=== PATIENT | male | born 1940 | race Caucasian/White ===

== ENCOUNTER 2018-01-03 10:29 | Observation (INO) ==
[2018-01-03] MEDS ORDERED: Sodium Chlor 0.9% Inj 500 ML IV.SIG ONE (11:15)
[2018-01-03 11:41] LABS: Baso % (Auto) 0.6 % (0.0-2.0); Eos # (Auto) 0.2 th/mm3 (0.0-0.4); Eos % (Auto) 2.7 % (0.0-4.0); Hematocrit 42.9 % (39.0-51.0); Hemoglobin 14.7 gm/dL (13.0-17.0); Lymph # (Auto) 0.9 th/mm3 (1.0-4.8); Lymph % (Auto) 14.7 % (9.0-44.0); Mean Corpuscular HGB Conc 34.2 % (32.0-36.0); Mean Corpuscular Hemoglobin 31.8 pg (27.0-34.0); Mean Platelet Volume 6.9 fL (7.0-11.0); Mono # (Auto) 0.4 th/mm3 (0.0-0.9); Mono % (Auto) 6.7 % (0.0-8.0); Neut # (Auto) 4.6 th/mm3 (1.8-7.7); Neut % (Auto) 75.3 % (16.0-70.0); Platelet Count 232 th/mm3 (150-450); Red Blood Count 4.62 mil/mm3 (4.50-5.90); Red Cell Distribution Width 13.4 % (11.6-17.2); White Blood Count 6.1 th/mm3 (4.0-11.0)
[2018-01-03 11:45] LABS: Activated Partial Thrombo Time 34.4 sec (24.3-30.1); Prothrombin Time 10.6 sec (9.8-11.6)
[2018-01-03 11:57] LABS: Calcium 8.4 mg/dL (8.5-10.1); Carbon Dioxide 28.2 meq/L (21.0-32.0); Potassium 4.3 meq/L (3.5-5.1)
[2018-01-03 12:00] LABS: Troponin I 0.06 ng/mL (0.02-0.05)
--- NOTE | 2018-01-03 12:00 | XR ---
EXAM DATE: 01/03/2018 11:57 AM EDT AGE/SEX: 77 years / Male INDICATIONS: Chest pain since this morning. CLINICAL DATA: This is the patient's initial encounter. Patient reports that signs and symptoms have been present for 1 day and indicates a pain score of 5/10. MEDICAL/SURGICAL HISTORY: None. CABG. COMPARISON: No prior exams available for comparison. FINDINGS: A single AP view of the chest demonstrates the lungs to be symmetrically aerated without evidence of mass, infiltrate or effusion. The cardiomediastinal contours are unremarkable. Previous sternotomy. Osseous structures are intact. CONCLUSION: No active disease. Previous sternotomy. Electronically signed by: Ronald Landry MD 01/03/2018 11:59 AM EDT
--- NOTE | 2018-01-03 12:36 | CT ---
EXAM DATE: 01/03/2018 12:27 PM EDT AGE/SEX: 77 years / Male INDICATIONS: Chest pain radiating to back. CLINICAL DATA: This is the patient's initial encounter. Patient reports that signs and symptoms have been present for 1 day and indicates a pain score of 6/10. MEDICAL/SURGICAL HISTORY: Cardiovascular disease. Carotid stent. RADIATION DOSE: 14.83 CTDI (mGy) COMPARISON: No prior exams available for comparison. TECHNIQUE: Volumetric scanning was performed using a multi-row detector CT scanner during bolus infu fernando of 95 ml Omnipaque 350 (iohexol) nonionic water-soluble contrast as a single exam dose. The da ta was post processed with a variety of visualization algorithms including full volume maximum intens ity projection, multi-planar sliding thin slab reformation, curved planar reformation, and surface re ndering techniques. Using automated exposure control and adjustment of the mA and/or kV according to patient size, radiation dose was kept as low as reasonably achievable to obtain optimal diagnostic q uality images. DICOM format image data is available electronically for review and comparison. FINDINGS: Lungs: There is no consolidation or pneumothorax. No concerning pulmonary nodule is visualized. No pleural fluid is present. Mediastinum: No abnormally enlarged lymph nodes by CT criteria. No axillary or hilar abnormalities a re identified. Moderate coronary artery calcification is noted. Abdomen: The liver and spleen are free of focal defects. The gallbladder and pancreas demonstrate no abnormality. The adrenal glands are normal. The kidneys demonstrate no evidence of solid renal mass or hydronephrosis. No free fluid or abdominal masses are identified. No para-aortic adenopathy is see n. Pelvis: No evidence of free fluid or pelvic mass. No abnormally enlarged inguinal or retroperitoneal lymph nodes are present. The bladder is unremarkable. Multiple diverticula are seen along the sigmoi d colon. Thoracic Aorta: The thoracic aortic root is normal with normal branching of the great vessels. Ther e is no evidence of aneurysm or dissection. Abdominal Aorta: Mild calcified plaque is present throughout the abdominal aorta. The aorta is normal in caliber without aneurysm or dissection. The renal arteries are patent bilaterally. The proximal celiac and superior mesenteric arteries are patent and normal in diameter. Pelvic Vessels: The internal iliac and external iliac vessels are patent without aneurysm or stenosi s. CONCLUSION: 1. Mild calcific atherosclerotic disease involving the aorta. 2. No evidence of aneurysm, dissection or ulceration. 3. No evidence of acute cardiopulmonary process. 4. Uncomplicated diverticulosis lies unremarkable abdomen and pelvis. 5. Moderate calcific coronary artery disease. Electronically signed by: Deuce Kwok MD 01/03/2018 12:35 PM EDT
--- NOTE | 2018-01-03 13:00 | ED ---
HPI General Chief complaint: Chest Pain Stated complaint: chest pain Time Seen by Provider: 01/03/18 10:56 Source: patient, family and RN notes reviewed Mode of arrival: ambulatory History of Present Illness HPI narrative: 77yM presenting with chest pain. The patient states that he was making the bed this morning when he began to have sudden-onset substernal/ left- sided chest pain which he describes as "sharp", radiating to his back, constant x several hours, not made better or worse by anything, associated with lightheadedness, diaphoresis, and nausea. He denies fever or chills, cough, or vomiting. He has a history of CAD s/p CABG in the . He took a full-dose aspirin prior to arrival. Related Data Home Medications Medication Instructions Recorded Confirmed aspirin 325 mg PO DAILY 01/03/18 01/03/18 levothyroxine [Synthroid] 50 mcg PO DAILY 01/03/18 01/03/18 omega 6-oly-mud-fish oil [Fish Oil] 1,000 mg PO DAILY 01/03/18 01/03/18 ramipril 10 mg PO DAILY 01/03/18 01/03/18 rosuvastatin [Crestor] 20 mg PO DAILY 01/03/18 01/03/18 Allergies Allergy/AdvReac Type Severity Reaction Status Date / Time No Known Allergies Allergy Verified 01/03/18 10:52 Review of Systems Except as stated in HPI: all other systems reviewed are negative Constitutional Denies fever(s) Eyes Denies blurry vision ENT Denies nasal congestion Cardiovascular Reports chest pain Respiratory Denies cough Gastrointestinal Reports nausea Genitourinary Denies dysuria Musculoskeletal Denies back pain Neurologic Denies confusion Psychiatric Denies confusion PMFSH History History Provided By: Patient Medical History Medical History HBP (high blood pressure) (Acute) High cholesterol (Acute) Hx of cardiac disorder (Acute) Hx of thyroid disease (Acute) Surgical History Surgical History Hx of heart artery stent (Acute) Social History Social History Substance History: No History of Abuse Second Hand Smoke Exposure: No Smoking Status: Former smoker Tobacco Type: Cigarettes How Often Do You Have a Drink Containing Alcohol: Never Recent Travel in [facility] within the Last 8 Weeks: No Recent Out of Country Travel within the Last 8 Weeks: No Immunization History Tetanus Immunization: >5 Years Hx Influenza Vaccine This Season: Yes Exam Const General: healthy appearing and no acute distress HENMT Head: normocephalic and atraumatic Face and sinus: normal facial exam Eyes General: appearance normal, both eyes and all related structures Pupils: PERRL Chest Other: Well-healed midline sternotomy scar Resp Effort & Inspection: normal respiratory effort Auscultation: no rhonchi and no wheezes Cardio Rate: regular rate Rhythm: regular rhythm GI Inspection: non-distended Palpation: soft and nontender Skin General: no rashes or lesions noted Other: No diaphoresis Neuro General: alert, awake, oriented x3 and no focal motor deficits Psych Affect: normal affect Course Initial Documented Vital Signs Temperature 97.8 F 01/03/18 10:31 Pulse Rate 98 H 01/03/18 10:31 Respiratory Rate 20 01/03/18 10:31 Blood Pressure 190/87 H 01/03/18 10:31 Pulse Oximetry 97 01/03/18 10:31 Last Documented Vital Signs Temperature 97.8 F 01/03/18 13:00 Pulse Rate 69 01/03/18 13:00 Respiratory Rate 16 01/03/18 13:00 Blood Pressure 133/71 01/03/18 13:00 Pulse Oximetry 99 01/03/18 13:00 Clinical Decision Support HEART Score Questions History: Moderately suspicious EKG: Non-specific repolarization disturbance Age: 65 years+ Risk Factors: 3 or more Risk Factors or Hx of Atherosclerotic Disease Initial Troponin: 1-3 x Normal Limit Heart Score HEART Score: 7 Medical Decision Making [facility] Narrative Medical decision making narrative: Assessment: 77yM presenting with chest pain Plan: EKG and monitor Labs CXR CTA chest Addendum: Patient found to have trop of 0.07, negative CTA chest, labs otherwise unremarkable. I spoke with the patient at length and informed him of these findings as well as plan to keep him in the hospital; he understands and agrees. Case discussed with family medicine residents, who will admit. Differential Diagnosis Differential Diagnosis: Differential diagnosis includes, but is not limited to: ACS, arrhythmia, aortic dissection, aortic aneurysm, pericarditis, pneumonia Lab Data Lab results reviewed: Yes I reviewed the patient's lab results. Result diagrams: 01/03/18 11:17 01/03/18 11:17 Lab Results 01/03/18 01/03/18 01/03/18 Range/Units 11:17 11:17 11:17 WBC 6.1 (4.0-11.0) th/mm3 RBC 4.62 (4.50-5.90) mil/mm3 Hgb 14.7 (13.0-17.0) gm/dL POC Hgb (Calc) Cancelled Hct 42.9 (39.0-51.0) % POC Hct Cancelled MCV 93.0 (80.0-100.0) fL MCH 31.8 (27.0-34.0) pg MCHC 34.2 (32.0-36.0) % RDW 13.4 (11.6-17.2) % Plt Count 232 (150-450) th/mm3 MPV 6.9 L (7.0-11.0) fL Neut % (Auto) 75.3 H (16.0-70.0) % Lymph % (Auto) 14.7 (9.0-44.0) % [place] % (Auto) 6.7 (0.0-8.0) % Eos % (Auto) 2.7 (0.0-4.0) % Baso % (Auto) 0.6 (0.0-2.0) % Neut # (Auto) 4.6 (1.8-7.7) th/mm3 Lymph # (Auto) 0.9 L (1.0-4.8) th/mm3 [place] # (Auto) 0.4 (0.0-0.9) th/mm3 Eos # (Auto) 0.2 (0.0-0.4) th/mm3 Baso # (Auto) 0.0 (0.0-0.2) th/mm3 WBC Differential . Differential Comment Auto diff final PT 10.6 (9.8-11.6) sec INR 1.0 Ratio APTT 34.4 H (24.3-30.1) sec POC Sodium Cancelled Sodium 142 (136-145) meq/L POC Potassium Cancelled Potassium 4.3 (3.5-5.1) meq/L POC Chloride Cancelled Chloride 108 H (98-107) meq/L Carbon Dioxide 28.2 (21.0-32.0) meq/L Anion Gap 6 (5-15) meq/L POC BUN Cancelled BUN 16 (7-18) mg/dL Creatinine 1.11 (0.60-1.30) mg/dL POC Creatinine Cancelled Estimated GFR 65 L (>89) mL/min POC Glucose Cancelled Random Glucose 178 H (74-106) mg/dL Calcium 8.4 L (8.5-10.1) mg/dL Troponin I 0.06 H (0.02-0.05) ng/mL Imaging Data Radiologist's impression: Chest X-Ray 01/03/18 11:13 CONCLUSION: No active disease. Previous sternotomy. Thoracic Aorta CT 01/03/18 11:13 CONCLUSION: 1. Mild calcific atherosclerotic disease involving the aorta. 2. No evidence of aneurysm, dissection or ulceration. 3. No evidence of acute cardiopulmonary process. 4. Uncomplicated diverticulosis lies unremarkable abdomen and pelvis. 5. Moderate calcific coronary artery disease. ECG Data Attestation: I personally reviewed and interpreted this ECG as follows: Interpretation: Rate: 80 BPM Rhythm: Sinus [place]: Normal Intervals: 1st degree AV block, IVCD, QTc 425 ms Q waves: None T waves: Inverted in V6 ST segments: No significant elevations or depressions, upsloping ST in V1-V4 Impression: Abnormal EKG, new changes when compared to 11/20/2013. Discharge Plan Discharge Disposition Patient Disposition: 30 Still Patient Discharge Condition Condition: Stable Discharge Details Diagnosis: ACS (acute coronary syndrome) Physicians Team ED Provider: Kiera Goss Primary Care Provider: Bean Orosco Rxs /Orders / Referrals /Forms Prescriptions: No Action aspirin 325 mg Tablet 325 mg PO DAILY RF: 0 levothyroxine [Synthroid] 50 mcg Tablet 50 mcg PO DAILY RF: 0 ramipril 10 mg Capsule 10 mg PO DAILY RF: 0 rosuvastatin [Crestor] 10 mg Tablet 20 mg PO DAILY RF: 0 omega 5-rha-idv-fish oil [Fish Oil] 1,000 mg (120 mg-180 mg) Capsule 1,000 mg PO DAILY RF: 0 Discharge Instructions Patient Printed Instructions: Chest Pain (ED) Discharge Interventions Interventions: Vital Signs Last Done: 01/03/18 13:00 Status ED Status: With Doctor
--- NOTE | 2018-01-03 13:46 | P.HPFP ---
History of Present Illness Primary Care Physician: Bean Orosco MD History of Present Illness: 77 year old male with PMH of hypothyroidism, previous ND status post CABG procedure 21 years ago presents to the ED for substernal chest pain that started this morning and radiated to his back. He was making up the bed when suddenly he had substernal chest pain, describes it as "heartburn pain" not really sharp. He then sat down on the side of the bed and the chest pain went away. He was able to have breakfast that morning and denied any chest pain. After breakfast, he went to the garage and was putting away some laundry when the chest pain returned. He stated that the pain felt worse than previously, rating it a 6 out of 10 in severity and lingered for a longer period of time even at rest. The pain radiated on the L side as felt as a sharp pain and did not subside until after he got into the hospital. He took his BP at that time and it was elevated. He records it as 175/70, repeated it after 20 mins (180/ 80) and 190/87 on ED admission. He did not take anything for the pain. He states that the pain is not as severe as his ND in the past, but he has never experienced this type of discomfort before. Dr. 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 - Diagnosis (1) ACS (acute coronary syndrome) (2) Hypertension (3) Hypothyroidism (4) Nutrition, metabolism, and development symptoms (5) DVT prophylaxis Review of Systems Constitutional: Denies chills, Denies fever(s), Denies headache(s), Denies night sweats, Denies weight gain, Denies weight loss Eyes: Denies blurry vision Cardiovascular: Reports chest pain, Reports chest pain at rest, Reports chest pain with activity, Denies irregular heart rhythm, Denies leg swelling, Denies lightheadedness, Denies rapid, pounding, or irregular heartbeat Respiratory: Denies cough, Denies pain on inspiration, Denies shortness of breath Psychiatric: Denies thoughts of hurting/killing others, Denies thoughts of hurting/killing yourself [facility] - History History Provided By: Patient - Medical History Medical History: Medical History (Last Updated 01/03/18 @ 13:53 by Vivi Claudio MD, R1) Basal cell carcinoma (BCC) HBP (high blood pressure) High cholesterol Hx of cardiac disorder Hx of thyroid disease Squamous cell carcinoma - Surgical History Surgical History: Surgical History (Last Updated 01/03/18 @ 13:53 by Vivi Claudio MD, R1) H/O cervical spine surgery Hx of heart artery stent - Family History Family History: Family History (Last Updated 01/03/18 @ 13:53 by Vivi Claudio MD, R1) Father Lung cancer Sister Pancreatic cancer - Tobacco History Second Hand Smoke Exposure: No Tobacco Use In Past 30 Days: No (quit 50 years ago) Smoking Status: Former smoker Tobacco Type: Cigarettes (quit 51 years go) - Alcohol History How Often Do You Have a Drink Containing Alcohol: Monthly or less (a beer a day) - Substance Use History Substance History: No History of Abuse - Travel History Recent Travel in the [facility] Within the Last 8 Weeks: No Recent Travel Out of the Country Within the Last 8 Weeks: No - Immunization History Tetanus Immunization: >5 Years Hx Influenza Vaccine This Season: Yes Medications and Allergies Active Medications: Active Medications Sodium Chloride (Ns Flush) 2 ml IV.FLUSH UNSCH PRN PRN Reason: FLUSH AFTER USING IV ACCESS Last Admin: 01/03/18 11:21 Dose: 2 ml Allergies Allergy/AdvReac Type Severity Reaction Status Date / Time No Known Allergies Allergy Verified 01/03/18 10:52 Home Medications Medication Instructions Recorded Confirmed Type aspirin 325 mg PO DAILY 01/03/18 01/03/18 History levothyroxine [Synthroid] 50 mcg PO DAILY 01/03/18 01/03/18 History lutein 40 mg PO DAILY 01/03/18 01/03/18 History omega 9-hrv-rge-fish oil [Fish Oil] 1,000 mg PO DAILY 01/03/18 01/03/18 History ramipril 10 mg PO DAILY 01/03/18 01/03/18 History rosuvastatin [Crestor] 20 mg PO DAILY 01/03/18 01/03/18 History Exam Vital signs: Vital Signs 01/03/18 10:31 01/03/18 10:52 01/03/18 11:13 Temperature 97.8 F 97.8 F Pulse Rate 98 H 74 69 Respiratory Rate 20 18 Blood Pressure 190/87 H 150/71 H Pulse Oximetry 97 98 98 01/03/18 11:36 01/03/18 12:00 01/03/18 13:00 Temperature 97.7 F 97.8 F 97.8 F Pulse Rate 72 75 69 Respiratory Rate 17 16 16 Blood Pressure 142/65 H 138/67 133/71 Pulse Oximetry 99 99 99 Intake & Output 01/02/18 01/03/18 01/03/18 18:59 06:59 18:59 Intake Total 500 / 500 Balance 500 / 500 Weight 153 kg Intake: IV 500 / 500 NS Inj 500 ML @ Wide Open IV. 500 / 500 SIG BOLUS ONE Rx#:[id number] Narrative: Well-appearing male, sitting comfortably in bed, in no acute distress. - Constitutional no acute distress - Routine HEENT Exam Head: Present: normocephalic, atraumatic - Routine Cardiovascular Exam Present: RRR, S1, S2. Absent: murmur Comments: No pedal edema appreciated. - Routine Abdominal Exam Present: soft, normoactive bowel sounds. Absent: tenderness Results - Labs Result diagrams: 01/03/18 11:17 01/03/18 11:17 Abnormal lab results 01/03/18 01/03/18 01/03/18 Range/Units 11:17 11:17 11:17 MPV 6.9 L (7.0-11.0) fL Neut % (Auto) 75.3 H (16.0-70.0) % Lymph # (Auto) 0.9 L (1.0-4.8) th/mm3 APTT 34.4 H (24.3-30.1) sec Chloride 108 H (98-107) meq/L Estimated GFR 65 L (>89) mL/min Random Glucose 178 H (74-106) mg/dL Calcium 8.4 L (8.5-10.1) mg/dL Troponin I 0.06 H (0.02-0.05) ng/mL Short CBC 01/03/18 Range/Units 11:17 WBC 6.1 (4.0-11.0) th/mm3 Hgb 14.7 (13.0-17.0) gm/dL Hct 42.9 (39.0-51.0) % Plt Count 232 (150-450) th/mm3 BMP 01/03/18 11:17 Sodium 142 Potassium 4.3 Chloride 108 H Carbon Dioxide 28.2 BUN 16 Creatinine 1.11 Calcium 8.4 L Cardiac Enzymes 01/03/18 Range/Units 11:17 Troponin I 0.06 H (0.02-0.05) ng/mL - Imaging Impressions Chest X-Ray 01/03/18 11:13 CONCLUSION: No active disease. Previous sternotomy. Thoracic Aorta CT 01/03/18 11:13 CONCLUSION: 1. Mild calcific atherosclerotic disease involving the aorta. 2. No evidence of aneurysm, dissection or ulceration. 3. No evidence of acute cardiopulmonary process. 4. Uncomplicated diverticulosis lies unremarkable abdomen and pelvis. 5. Moderate calcific coronary artery disease. Caprini VTE Risk Assessment Caprini VTE Risk Assessment: Moderate/High Risk (score >= 2) Caprini Risk Assessment Model: Point Value = 1 Point Value = 2 Point Value = 3 Point Value = 5 Age 41-60 Minor surgery BMI > 25 kg/m2 Swollen legs Varicose veins or History of unexplained or recurrent spontaneous Oral contraceptives or hormone replacement Sepsis (< 1 month) Serious lung disease, including pneumonia (< 1 month) Abnormal pulmonary function Acute myocardial infarction Congestive heart failure (< 1 month) History of inflammatory bowel disease Medical patient at bed rest Age 61-74 Arthroscopic surgery Major open surgery (> 45 min) Laparoscopic surgery (> 45 min) Malignancy Confined to bed (> 72 hours) Immobilizing plaster cast Central venous access Age >= 75 History of VTE Family history of VTE Factor V Leiden Prothrombin [id number] Lupus anticoagulant Anticardiolipin antibodies Elevated serum homocysteine Heparin-induced thrombocytopenia Other congenital or acquired thrombophilia Stroke (< 1 month) Elective arthroplasty Hip, pelvis, or leg fracture Acute spinal cord injury (< 1 month) Prophylaxis Regimen: Total Risk Factor Score Risk Level Prophylaxis Regimen 0-1 Low Early ambulation 2 Moderate Order ONE of the following: *Sequential Compression Device (SCD) *Heparin 5000 units SQ BID 3-4 Higher Order ONE of the following medications: *Heparin 5000 units SQ TID *Enoxaparin/Lovenox 40 mg SQ daily (WT < 150 kg, CrCl > 30 mL/min) *Enoxaparin/Lovenox 30 mg SQ daily (WT < 150 kg, CrCl > 10-29 mL/min) *Enoxaparin/Lovenox 30 mg SQ BID (WT < 150 kg, CrCl > 30 mL/min) AND/OR *Sequential Compression Device (SCD) 5 or more Highest Order ONE of the following medications: *Heparin 5000 units SQ TID (Preferred with Epidurals) *Enoxaparin/Lovenox 40 mg SQ daily (WT < 150 kg, CrCl > 30 mL/min) *Enoxaparin/Lovenox 30 mg SQ daily (WT < 150 kg, CrCl > 10-29 mL/min) *Enoxaparin/Lovenox 30 mg SQ BID (WT < 150 kg, CrCl > 30 mL/min) AND *Sequential Compression Device (SCD) Assessment and Plan - Assessment (1) ACS (acute coronary syndrome) Code(s): I24.9 - Acute ischemic heart disease, unspecified Status: Acute Plan: Patient with history of myocardial infarction 21 years ago status post CABG procedure. Sudden onset of substernal chest pain with radiation to the left side, and associated high blood pressures. Concerning for possible ND. Continue to monitor below. Troponin high on admission 0.06. Trend q63. EKG shows some T-wave inversions. Repeat EKG q6. follow-up. Patient on telemetry. Continue to monitor. CBC with differential ordered. Follow-up CMP ordered. Follow-up PT/INR ordered. Follow-up Patient's power wood sawyer is Dr. Henry, consulted. Appreciate recommendations. Hold aspirin, in anticipation of possible cardiac catheterization if troponin continue to increase. Patient advised to notify MD if any symptoms of chest pain or shortness of breath occur. (2) Hypertension Code(s): I10 - Essential (primary) hypertension Status: Acute Plan: Patient has history of chronic hypertension, on ramipril at home. Continue home medications. Vital signs stable. Continue to monitor vital signs every 4. (3) Hypothyroidism Code(s): E03.9 - Hypothyroidism, unspecified Status: Acute Plan: Continue home medication. (4) Nutrition, metabolism, and development symptoms Code(s): R63.8 - Other symptoms and signs concerning food and fluid intake Status: Acute Plan: Fluids:Normal saline at 90 mils per hour. Electrolytes:Monitor and replete as needed. Nutrition: N.p.o. until troponins are trended. (5) DVT prophylaxis Status: Acute
[2018-01-03] MEDS ORDERED: Bisacodyl 10 MG Supp RECTAL PRN (14:09)
[2018-01-03] MEDS ORDERED: Acetaminophen 325 MG Tablet PO PRN (14:09)
[2018-01-03] MEDS: Sod Chloride 0.9% Inj 1,000 ML IV.CONT SCH (15:30)
[2018-01-03 16:09] LABS: Bilirubin,Urine Negative (Negative); Clarity,Urine Clear (Clear); Color,Urine Straw (Yellw/Straw); Glucose,Urine (UA) Negative (Negative); Leukocyte Esterase,Urine Negative (Negative); Nitrite,Urine Negative (Negative); Specific Gravity,Urine 1.034 (1.002-1.035)
[2018-01-03 18:49] LABS: Thyroid Stimulating Hormone 5.63 uIU/mL (0.358-3.740)
[2018-01-03 18:50] LABS: Troponin I 0.1 ng/mL (0.02-0.05)
[2018-01-03] MEDS ORDERED: Temazepam 15 MG Capsule PO PRN (21:00)
[2018-01-03 21:39] LABS: Troponin I 0.11 ng/mL (0.02-0.05)
[2018-01-03] MEDS ORDERED: Nitroglycerin Drip Premix 50 MG/250 ML BOTTLE IV.CONT PRN (22:13)
[2018-01-03] MEDS ORDERED: Heparin 10,000 UNITS/10 ML Vial (for IV use) IV.PUSH STA (22:27)
[2018-01-03] MEDS ORDERED: Heparin Drip 25,000 UNIT/250 ML BAG IV.CONT PRN (22:27)
--- NOTE | 2018-01-03 22:31 | P.PNADD ---
Addendum to Inpatient Note Reason for Addendum: Additional Documentation Additional information: S: Trending troponin were found to be elevated at 0.1, EKG continued to show inverted T waves but no STEMI. Patient continued to complain of intermittent chest tightness. Cardiology was consulted in regards to stat cardiac catheterization. Case was discussed with Dr. doss, who recommended patient to be transferred to the cardiac ICU for better monitoring. Per cardiology, patient is to be placed on IV nitroglycerin and titrated for angina. IV heparin titrated, metoprolol 25 twice daily, he is to be n.p.o. after midnight in anticipation for cardiac catheterization in the morning. After placing nitroglycerin paste, patient reported abdominal rash and associated areas of erythema on his arms. The medical team went to bedside to evaluate. O: PERIPATOLOGIST: T: 97.3, heart rate: 64, BP 152/84, oxygen sats 96% on room air. General: Well-appearing man, sitting comfortably in bed, in no acute distress CVS: Regular rate and rhythm, S1 and S2 appreciated, no murmurs, rubs, or gallops. Respiratory: Chest rise and fall symmetrically, clear to auscultation bilaterally, no wheezes, rales, or rhonchi. Abdomen: Soft, nondistended, bowel sounds present. Erythematous rash appreciated over the abdomen with further erythematous areas on the upper forearms. Rash is not warm to the touch, rash is not itchy to patient. A/P: 77-year-old male with past medical history of previous DC 21 years post CABG procedure presented to the emergency room with substernal chest pain. Troponins elevated 3. Patient symptomatic. Cardiology consulted. Patient will go for cardiac cath in a.m. IV nitroglycerin drip to be titrated for angina IV heparin bolus to be titrated. Metoprolol 25 mg twice daily Transfer to cardiac ICU for better management N.p.o. after midnight. Benadryl 25 mg 1 time dose for rash: Unsure if allergy is due to nitroprusside or adhesive from Nitropaste. We will relay the need to monitor while on nitroprusside drip to cardiac care nurse.
[2018-01-03] MEDS: Metoprolol Tartrate 25 MG Tablet PO SCH (23:35)
[2018-01-03 23:50] LABS: Activated Partial Thrombo Time 35.4 sec (24.3-30.1); INR 1.1 Ratio; Prothrombin Time 10.9 sec (9.8-11.6)
[2018-01-04] MEDS ORDERED: Iohexol 350 MG/ML 100 ML Vial (for Cath Lab) IVCONTRAST ONE (02:13)
[2018-01-04] MEDS: Sod Chloride 0.9% Inj 1,000 ML IV.CONT SCH ×2 (02:45→20:40)
[2018-01-04 05:40] LABS: Activated Partial Thrombo Time 67.6 sec (24.3-30.1); INR 1.1 Ratio; Prothrombin Time 10.7 sec (9.8-11.6)
[2018-01-04 05:41] LABS: Baso % (Auto) 0.7 % (0.0-2.0); Eos # (Auto) 0.3 th/mm3 (0.0-0.4); Eos % (Auto) 4.4 % (0.0-4.0); Hematocrit 43.7 % (39.0-51.0); Hemoglobin 14.7 gm/dL (13.0-17.0); Lymph # (Auto) 0.7 th/mm3 (1.0-4.8); Lymph % (Auto) 11.5 % (9.0-44.0); Mean Corpuscular HGB Conc 33.8 % (32.0-36.0); Mean Corpuscular Hemoglobin 31.5 pg (27.0-34.0); Mean Corpuscular Volume 93.4 fL (80.0-100.0); Mean Platelet Volume 6.8 fL (7.0-11.0); Mono # (Auto) 0.6 th/mm3 (0.0-0.9); Mono % (Auto) 8.9 % (0.0-8.0); Neut # (Auto) 4.6 th/mm3 (1.8-7.7); Neut % (Auto) 74.5 % (16.0-70.0); Platelet Count 212 th/mm3 (150-450); Red Blood Count 4.68 mil/mm3 (4.50-5.90); Red Cell Distribution Width 13.7 % (11.6-17.2); White Blood Count 6.2 th/mm3 (4.0-11.0)
[2018-01-04 05:56] LABS: Alanine Aminotransferase 21 U/L (12-78); Albumin 3.4 g/dL (3.4-5.0); Anion Gap 7 meq/L (5-15); Aspartate Aminotransferase 17 U/L (15-37); Blood Urea Nitrogen 14 mg/dL (7-18); Calcium 7.8 mg/dL (8.5-10.1); Carbon Dioxide 26.1 meq/L (21.0-32.0); Chloride 111 meq/L (98-107); Cholesterol 117 mg/dL (120-200); Glomerular Filtration Rate 82 mL/min (>89); Glucose,Random 93 mg/dL (74-106); Potassium 4.1 meq/L (3.5-5.1); Sodium 144 meq/L (136-145)
[2018-01-04 05:58] LABS: Alkaline Phosphatase 54 U/L (45-117); Chol/HDL Ratio 2.86 Ratio; HDL Cholesterol 40.9 mg/dL (40.0-60.0); LDL Cholesterol,Calculated 61 mg/dL (0-99); Total Protein 6.1 g/dL (6.4-8.2); Triglycerides 77 mg/dL (42-150)
[2018-01-04] MEDS ORDERED: Levothyroxine 50 MCG Tablet PO SCH (06:00)
[2018-01-04] MEDS: Metoprolol Tartrate 25 MG Tablet PO SCH ×2 (08:55→22:02)
[2018-01-04] MEDS ORDERED: Aspirin 325 MG Tablet PO SCH (09:00)
[2018-01-04] MEDS ORDERED: Ramipril 5 MG Capsule PO SCH (09:00)
--- NOTE | 2018-01-04 10:59 | P.PNFP ---
Subjective Interval history: Patient seen and examined bedside with medical team this morning. Patient continues to complain of some vague mild chest pains. He does not have any acute chest pain or change chest pain from overnight. He does not have any difficulties breathing. He has been n.p.o. since midnight in anticipation for his procedure. He had a rash reaction overnight; a red rash that was not itchy or painful. The rash has markedly decreased and is now only faint. He has no complaints. No dizziness. No fever/chills. <Any Peralta - 01/04/18 10:59> Results - Labs Result diagrams: 01/04/18 05:17 01/04/18 05:17 <Griffin Hi - 01/04/18 15:02> Abnormal lab results 01/03/18 01/03/18 01/03/18 Range/Units 18:11 21:11 23:22 MPV (7.0-11.0) fL Neut % (Auto) (16.0-70.0) % [place] % (Auto) (0.0-8.0) % Eos % (Auto) (0.0-4.0) % Lymph # (Auto) (1.0-4.8) th/mm3 APTT 35.4 H (24.3-30.1) sec Chloride (98-107) meq/L Estimated GFR (>89) mL/min Calcium (8.5-10.1) mg/dL Troponin I 0.10 H 0.11 H (0.02-0.05) ng/mL Total Protein (6.4-8.2) g/dL Cholesterol (120-200) mg/dL TSH 5.630 H (0.358-3.740) uIU/mL 01/04/18 01/04/18 01/04/18 Range/Units 05:17 05:17 05:17 MPV 6.8 L (7.0-11.0) fL Neut % (Auto) 74.5 H (16.0-70.0) % Deuel % (Auto) 8.9 H (0.0-8.0) % Eos % (Auto) 4.4 H (0.0-4.0) % Lymph # (Auto) 0.7 L (1.0-4.8) th/mm3 APTT 67.6 H D (24.3-30.1) sec Chloride 111 H (98-107) meq/L Estimated GFR 82 L (>89) mL/min Calcium 7.8 L (8.5-10.1) mg/dL Troponin I (0.02-0.05) ng/mL Total Protein 6.1 L (6.4-8.2) g/dL Cholesterol 117 L (120-200) mg/dL TSH (0.358-3.740) uIU/mL Short CBC 01/04/18 Range/Units 05:17 WBC 6.2 (4.0-11.0) th/mm3 Hgb 14.7 (13.0-17.0) gm/dL Hct 43.7 (39.0-51.0) % Plt Count 212 (150-450) th/mm3 BMP 01/04/18 05:17 Sodium 144 Potassium 4.1 Chloride 111 H Carbon Dioxide 26.1 BUN 14 Creatinine 0.90 Calcium 7.8 L Cardiac Enzymes 01/03/18 01/03/18 Range/Units 18:11 21:11 Total Creatine Kinase 55 (39-308) U/L Troponin I 0.10 H 0.11 H (0.02-0.05) ng/mL Liver Function 01/04/18 Range/Units 05:17 Total Bilirubin 0.4 (0.2-1.0) mg/dL AST 17 (15-37) U/L ALT 21 (12-78) U/L Alkaline Phosphatase 54 (45-117) U/L Albumin 3.4 (3.4-5.0) g/dL Urine 01/03/18 Range/Units 15:15 Urine Color Straw (Yellw/Straw) Urine Clarity Clear (Clear) Urine pH 8.0 (5.0-8.5) Ur Specific [place] 1.034 (1.002-1.035) Urine Protein Negative (Neg-Trace) mg/dL Urine Glucose (UA) Negative (Negative) mg/dL <Griffin Hi - 01/04/18 15:02> Abnormal lab results 01/03/18 01/03/18 01/03/18 Range/Units 11:17 11:17 11:17 MPV 6.9 L (7.0-11.0) fL Neut % (Auto) 75.3 H (16.0-70.0) % Deuel % (Auto) (0.0-8.0) % Eos % (Auto) (0.0-4.0) % Lymph # (Auto) 0.9 L (1.0-4.8) th/mm3 APTT 34.4 H (24.3-30.1) sec Chloride 108 H (98-107) meq/L Estimated GFR 65 L (>89) mL/min Random Glucose 178 H (74-106) mg/dL Calcium 8.4 L (8.5-10.1) mg/dL Troponin I 0.06 H (0.02-0.05) ng/mL Total Protein (6.4-8.2) g/dL Cholesterol (120-200) mg/dL TSH (0.358-3.740) uIU/mL 01/03/18 01/03/18 01/03/18 Range/Units 14:00 18:11 21:11 MPV (7.0-11.0) fL Neut % (Auto) (16.0-70.0) % [place] % (Auto) (0.0-8.0) % Eos % (Auto) (0.0-4.0) % Lymph # (Auto) (1.0-4.8) th/mm3 APTT (24.3-30.1) sec Chloride (98-107) meq/L Estimated GFR (>89) mL/min Random Glucose (74-106) mg/dL Calcium (8.5-10.1) mg/dL Troponin I 0.08 H 0.10 H 0.11 H (0.02-0.05) ng/mL Total Protein (6.4-8.2) g/dL Cholesterol (120-200) mg/dL TSH 5.630 H (0.358-3.740) uIU/mL 01/03/18 01/04/18 01/04/18 Range/Units 23:22 05:17 05:17 MPV 6.8 L (7.0-11.0) fL Neut % (Auto) 74.5 H (16.0-70.0) % [place] % (Auto) 8.9 H (0.0-8.0) % Eos % (Auto) 4.4 H (0.0-4.0) % Lymph # (Auto) 0.7 L (1.0-4.8) th/mm3 APTT 35.4 H (24.3-30.1) sec Chloride 111 H (98-107) meq/L Estimated GFR 82 L (>89) mL/min Random Glucose (74-106) mg/dL Calcium 7.8 L (8.5-10.1) mg/dL Troponin I (0.02-0.05) ng/mL Total Protein 6.1 L (6.4-8.2) g/dL Cholesterol 117 L (120-200) mg/dL TSH (0.358-3.740) uIU/mL 01/04/18 Range/Units 05:17 MPV (7.0-11.0) fL Neut % (Auto) (16.0-70.0) % Deuel % (Auto) (0.0-8.0) % Eos % (Auto) (0.0-4.0) % Lymph # (Auto) (1.0-4.8) th/mm3 APTT 67.6 H D (24.3-30.1) sec Chloride (98-107) meq/L Estimated GFR (>89) mL/min Random Glucose (74-106) mg/dL Calcium (8.5-10.1) mg/dL Troponin I (0.02-0.05) ng/mL Total Protein (6.4-8.2) g/dL Cholesterol (120-200) mg/dL TSH (0.358-3.740) uIU/mL Short CBC 18 01/04/18 Range/Units 11:17 05:17 WBC 6.1 6.2 (4.0-11.0) th/mm3 Hgb 14.7 14.7 (13.0-17.0) gm/dL Hct 42.9 43.7 (39.0-51.0) % Plt Count 232 212 (150-450) th/mm3 BMP 01/03/18 01/04/18 11:17 05:17 Sodium 142 144 Potassium 4.3 4.1 Chloride 108 H 111 H Carbon Dioxide 28.2 26.1 BUN 16 14 Creatinine 1.11 0.90 Calcium 8.4 L 7.8 L Cardiac Enzymes 01/03/18 01/03/18 01/03/18 Range/Units 11:17 14:00 18:11 Total Creatine Kinase (39-308) U/L Troponin I 0.06 H 0.08 H 0.10 H (0.02-0.05) ng/mL 01/03/18 Range/Units 21:11 Total Creatine Kinase 55 (39-308) U/L Troponin I 0.11 H (0.02-0.05) ng/mL Liver Function 01/04/18 Range/Units 05:17 Total Bilirubin 0.4 (0.2-1.0) mg/dL AST 17 (15-37) U/L ALT 21 (12-78) U/L Alkaline Phosphatase 54 (45-117) U/L Albumin 3.4 (3.4-5.0) g/dL Urine 01/03/18 Range/Units 15:15 Urine Color Straw (Yellw/Straw) Urine Clarity Clear (Clear) Urine pH 8.0 (5.0-8.5) Ur Specific [place] 1.034 (1.002-1.035) Urine Protein Negative (Neg-Trace) mg/dL Urine Glucose (UA) Negative (Negative) mg/dL <Any Peralta - 01/04/18 10:59> - Imaging Impressions Chest X-Ray 01/03/18 11:13 CONCLUSION: No active disease. Previous sternotomy. Thoracic Aorta CT 01/03/18 11:13 CONCLUSION: 1. Mild calcific atherosclerotic disease involving the aorta. 2. No evidence of aneurysm, dissection or ulceration. 3. No evidence of acute cardiopulmonary process. 4. Uncomplicated diverticulosis lies unremarkable abdomen and pelvis. 5. Moderate calcific coronary artery disease. <Any Peralta - 01/04/18 10:59> Physical Exam Vital signs: Vital Signs 01/03/18 16:00 01/03/18 18:44 01/03/18 20:00 Temperature 97.9 F 97.5 F L 97.3 F L Pulse Rate 69 66 64 Respiratory Rate 20 20 20 Blood Pressure 159/87 H 141/79 H 152/84 H Pulse Oximetry 96 96 98 01/03/18 23:30 01/04/18 00:00 01/04/18 00:19 Temperature 97.6 F 97.6 F Pulse Rate 77 74 74 Respiratory Rate 18 22 Blood Pressure 134/66 168/86 H Pulse Oximetry 98 98 01/04/18 01:00 01/04/18 02:00 01/04/18 03:00 Temperature 97.7 F Pulse Rate 68 58 L 57 L Respiratory Rate 22 Blood Pressure 110/61 Pulse Oximetry 98 01/04/18 04:00 01/04/18 05:00 01/04/18 09:53 Temperature Pulse Rate 58 L 62 Respiratory Rate Blood Pressure Pulse Oximetry 96 Intake & Output 01/03/18 01/04/18 01/04/18 18:59 06:59 18:59 Intake Total 500 / 500 1240 / 1240 750 / 750 Output Total 775 / 775 Balance -275 / -275 1240 / 1240 750 / 750 Weight 68.8 kg 69 kg Intake: IV 500 / 500 1000 / 1000 NS Inj 1,000 ML @ 90 mls/hr IV. 1000 / 1000 CONT .Q11H7M XUAN Rx#:[id number] NS Inj 500 ML @ Wide Open IV. 500 / 500 SIG BOLUS ONE Rx#:[id number] Oral 240 / 240 Anesthesia Amount 750 / 750 Output: Urine 775 / 775 Other: # Voids 1 Date of Last Bowel Movement 01/03/18 # Bowel Movements 0 Weight On Admission 68.8 kg <Griffin Hi - 01/04/18 15:02> Vital Signs 01/03/18 11:13 01/03/18 11:36 01/03/18 12:00 Temperature 97.7 F 97.8 F Pulse Rate 69 72 75 Respiratory Rate 17 16 Blood Pressure 142/65 H 138/67 Pulse Oximetry 98 99 99 01/03/18 13:00 01/03/18 13:55 01/03/18 14:20 Temperature 97.8 F 97.8 F 97.8 F Pulse Rate 69 76 76 Respiratory Rate 16 18 17 Blood Pressure 133/71 148/75 H 130/77 Pulse Oximetry 99 99 01/03/18 16:00 01/03/18 18:44 01/03/18 20:00 Temperature 97.9 F 97.5 F L 97.3 F L Pulse Rate 69 66 64 Respiratory Rate 20 20 20 Blood Pressure 159/87 H 141/79 H 152/84 H Pulse Oximetry 96 96 98 01/03/18 23:30 01/04/18 00:00 01/04/18 00:19 Temperature 97.6 F 97.6 F Pulse Rate 77 74 74 Respiratory Rate 18 22 Blood Pressure 134/66 168/86 H Pulse Oximetry 98 98 01/04/18 01:00 01/04/18 02:00 01/04/18 03:00 Temperature 97.7 F Pulse Rate 68 58 L 57 L Respiratory Rate 22 Blood Pressure 110/61 Pulse Oximetry 98 01/04/18 04:00 01/04/18 05:00 01/04/18 09:53 Temperature Pulse Rate 58 L 62 Respiratory Rate Blood Pressure Pulse Oximetry 96 Intake & Output 01/03/18 01/04/18 01/04/18 18:59 06:59 18:59 Intake Total 500 / 500 1240 / 1240 Output Total 775 / 775 Balance -275 / -275 1240 / 1240 Weight 68.8 kg 69 kg Intake: IV 500 / 500 1000 / 1000 NS Inj 1,000 ML @ 90 mls/hr IV. 1000 / 1000 CONT .Q11H7M XUAN Rx#:[id number] NS Inj 500 ML @ Wide Open IV. 500 / 500 SIG BOLUS ONE Rx#:[id number] Oral 240 / 240 Output: Urine 775 / 775 Other: # Voids 1 Date of Last Bowel Movement 01/03/18 # Bowel Movements 0 Weight On Admission 68.8 kg [facility] 10[facility]59> - Constitutional no acute distress [facility]/04/18 10:59> - Routine HEENT Exam Head: Present: normocephalic <[facility] - 01/04/18 10:59> - Routine Respiratory Exam Present: CTA bilaterally. Absent: accessory muscle use, decreased breath sounds <[facility] - 01/04/18 10:59> - Routine Cardiovascular Exam Present: RRR, S1, S2 [facility]/04/[facility] 10[facility]59> - Routine Abdominal Exam Present: soft, normoactive bowel sounds. Absent: tenderness <[facility] - 01/04/18 10:59> - Routine Skin Exam Present: intact. Absent: cyanosis, erythema <[facility] 01/04/18 10:59 > - Routine Neurological Exam Present: alert, oriented X3, CN II-XII intact <Any Peralta - 01/04/18 10: 59> Assessment and Plan - Assessment (1) ACS (acute coronary syndrome) Code(s): I24.9 - Acute ischemic heart disease, unspecified Status: Acute (2) Hypertension Code(s): I10 - Essential (primary) hypertension Status: Acute (3) Hypothyroidism Code(s): E03.9 - Hypothyroidism, unspecified Status: Acute (4) Nutrition, metabolism, and development symptoms Code(s): R63.8 - Other symptoms and signs concerning food and fluid intake Status: Acute (5) DVT prophylaxis Status: Acute <SussyGriffin - 01/04/18 15:02> (1) ACS (acute coronary syndrome) Code(s): I24.9 - Acute ischemic heart disease, unspecified Status: Acute Plan: History of CABG, increasing troponin trend, EKG with ST elevations, chest pain Stat cardiology consult placed overnight, neurology specialist aware and scheduled for cardiac catheterization at 12:30 PM today, patient n.p.o. 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 Sudden onset of substernal chest pain with radiation to the left side, and associated high blood pressures. (2) Hypertension Code(s): I10 - Essential (primary) hypertension Status: Acute Plan: Patient has history of chronic hypertension, on ramipril at home. Continue home medications added metoprolol twice daily per cardiology. Vital signs stable. Continue to monitor vital signs every 4. (3) Hypothyroidism Code(s): E03.9 - Hypothyroidism, unspecified Status: Acute Plan: Continue home medication. TSH 5.6, patient's thyroid medication likely needs to be increased, will travel [employer] patient after procedure (4) Nutrition, metabolism, and development symptoms Code(s): R63.8 - Other symptoms and signs concerning food and fluid intake Status: Acute Plan: Fluids:Normal saline at 90 mils per hour. Electrolytes:Monitor and replete as needed. Nutrition: N.p.o. after procedure (5) DVT prophylaxis Status: Acute Plan: SCDs, heparin drip <FabianAny - 01/04/18 10:52> - Assessment and Plan 77-year-old male, history of CABG and hypertension, presents with STEMI. <Any Peralta - 01/04/18 10:59> Discharge Planning: Discharge pending recommendations of neurology specialist status post catheterization <Any Peralta - 01/04/18 10:59> - Attending Attestation The exam, history, and the medical decision-making described in the above note were completed with the assistance of the resident physician. I reviewed and agree with the findings presented. I attest that I had a [id number] encounter with the patient on the same day, and personally performed and documented my assessment and findings in the medical record.Chilo MAURO <Griffin Hi - 01/04/18 15:02>
--- NOTE | 2018-01-04 11:12 | P.CONCA ---
<Mandeep,August - Last Filed: 01/04/18 10:55> History of Present Illness Service: Cardiology Consult date: 01/04/18 Reason for Consult: Chest pain, elevated troponin Primary Care Provider: Bean Orosco MD History of Present Illness: Pleasant 77-year-old male well known to our practice with a significant past cardiac history of ASHD with coronary artery bypass graft [address], hypertension and hyperlipidemia. He had a negative nuclear stress test in November 2016. Patient reports that yesterday morning he woke up around 4 AM with heartburn took a few TUMS and went back to sleep. Later that morning he was making the bed and developed chest pain that radiated to his back, had to rest and chest pain resolved. Later that day he was doing laundry, chest pain returned and his BP was elevated so he decided to come to the ER. Today he admits to chest pressure and discomfort despite being on nitro drip. He reports feeling like something is wrong. All options discussed in detail with patient and including heart catheterization. [facility] - History History Provided By: Patient - Medical History Medical History: Medical History (Last Updated 01/04/18 @ 11:01 by Samantha Mandeep) Basal cell carcinoma (BCC) HBP (high blood pressure) High cholesterol Hx of cardiac disorder Hx of thyroid disease Squamous cell carcinoma - Surgical History Surgical History: Surgical History (Last Reviewed 01/03/18 @ 15:32 by Elyse Mckeon RN) H/O cervical spine surgery Hx of heart artery stent - Family History Family History: Family History (Last Updated 01/03/18 @ 13:53 by Vivi Claudio MD, R1) Father Lung cancer Sister Pancreatic cancer - Tobacco History Second Hand Smoke Exposure: No Tobacco Use In Past 30 Days: No (quit 50 years ago) Smoking Status: Former smoker Tobacco Type: Cigarettes (quit 51 years go) - Alcohol History How Often Do You Have a Drink Containing Alcohol: Monthly or less (a beer a day) - Substance Use History Substance History: No History of Abuse - Travel History Recent Travel in the [place] Within the Last 8 Weeks: No Recent Travel Out of the Country Within the Last 8 Weeks: No - Immunization History Tetanus Immunization: >5 Years Hx Influenza Vaccine This Season: Yes Medications and Allergies Allergies Allergy/AdvReac Type Severity Reaction Status Date / Time No Known Allergies Allergy Verified 01/03/18 10:52 Home Medications Medication Instructions Recorded Confirmed Type aspirin 325 mg PO DAILY 01/03/18 01/03/18 History levothyroxine [Synthroid] 50 mcg PO DAILY 01/03/18 01/03/18 History lutein 40 mg PO DAILY 01/03/18 01/03/18 History omega [id number] oil [Fish Oil] 1,000 mg PO DAILY 01/03/18 01/03/18 History ramipril 10 mg PO DAILY 01/03/18 01/03/18 History rosuvastatin [Crestor] 20 mg PO DAILY 01/03/18 01/03/18 History Active Medications: Active Medications Acetaminophen (Tylenol) 650 mg PO Q4H PRN PRN Reason: Temp > 100.4 Al Hydroxide/Mg Hydroxide (Milk Of Magnesia Liq) 30 ml PO Q12H PRN PRN Reason: Mild Constipation Aspirin (Aspirin) 325 mg PO DAILY [facility] Last Admin: 01/04/18 08:55 Dose: 325 mg Bisacodyl (Dulcolax Supp) 10 mg RECTAL DAILY PRN PRN Reason: SEVERE CONSITIPATION Sodium Chloride (Ns Inj) 1,000 mls @ 90 mls/hr IV.CONT .Q11H7M [facility] Last Admin: 01/04/18 02:45 Dose: 90 mls/hr Nitroglycerin/Dextrose (Nitroglycerin Drip Premix) 50 mg in 250 mls @ 1.5 mls/ hr IV.CONT TITRATE PRN; Protocol PRN Reason: See Protocol Heparin Sodium/Dextrose (Heparin/D5w 25,000 U/250 Ml) 25,000 unit in 250 mls @ 8 mls/hr IV.CONT TITRATE PRN; Protocol PRN Reason: Per Protocol Lactulose (Lactulose Liq) 30 ml PO DAILY PRN PRN Reason: SEVERE CONSITIPATION Levothyroxine Sodium (Synthroid) 50 mcg PO DAILY@0600 [facility] Last Admin: 01/04/18 06:34 Dose: 50 mcg Metoprolol Tartrate (Lopressor) 25 mg PO BID [facility] Last Admin: 01/04/18 08:55 Dose: 25 mg Ondansetron HCl (Zofran Inj) 4 mg IV.PUSH Q6H PRN PRN Reason: NAUSEA OR VOMITING Ramipril (Altace) 10 mg PO DAILY [facility] Last Admin: 01/04/18 10:32 Dose: 10 mg Sennosides (Senokot) 17.2 mg PO Q12H PRN PRN Reason: Moderate Constipation Sodium Chloride (Ns Flush) 2 ml IV.FLUSH UNSCH PRN PRN Reason: FLUSH AFTER USING IV ACCESS Last Admin: 01/03/18 11:21 Dose: 2 ml Sodium Chloride (Ns Inj) 2 ml IV.FLUSH BID XUAN Sodium Chloride (Ns Inj) 2 ml IV.FLUSH UNSCH PRN PRN Reason: FLUSH AFTER USING IV ACCESS Temazepam (Restoril) 15 mg PO HS PRN PRN Reason: INSOMNIA Exam Vital signs: Vital Signs 01/03/18 11:13 01/03/18 11:36 01/03/18 12:00 Temperature 97.7 F 97.8 F Pulse Rate 69 72 75 Respiratory Rate 17 16 Blood Pressure 142/65 H 138/67 Pulse Oximetry 98 99 99 01/03/18 13:00 01/03/18 13:55 01/03/18 14:20 Temperature 97.8 F 97.8 F 97.8 F Pulse Rate 69 76 76 Respiratory Rate 16 18 17 Blood Pressure 133/71 148/75 H 130/77 Pulse Oximetry 99 99 01/03/18 16:00 01/03/18 18:44 01/03/18 20:00 Temperature 97.9 F 97.5 F L 97.3 F L Pulse Rate 69 66 64 Respiratory Rate 20 20 20 Blood Pressure 159/87 H 141/79 H 152/84 H Pulse Oximetry 96 96 98 01/03/18 23:30 01/04/18 00:00 01/04/18 00:19 Temperature 97.6 F 97.6 F Pulse Rate 77 74 74 Respiratory Rate 18 22 Blood Pressure 134/66 168/86 H Pulse Oximetry 98 98 01/04/18 01:00 01/04/18 02:00 01/04/18 03:00 Temperature 97.7 F Pulse Rate 68 58 L 57 L Respiratory Rate 22 Blood Pressure 110/61 Pulse Oximetry 98 01/04/18 04:00 01/04/18 05:00 01/04/18 09:53 Temperature Pulse Rate 58 L 62 Respiratory Rate Blood Pressure Pulse Oximetry 96 Intake & Output 01/03/18 01/04/18 01/04/18 18:59 06:59 18:59 Intake Total 500 / 500 1240 / 1240 Output Total 775 / 775 Balance -275 / -275 1240 / 1240 Weight 68.8 kg 69 kg Intake: IV 500 / 500 1000 / 1000 NS Inj 1,000 ML @ 90 mls/hr IV. 1000 / 1000 CONT .Q11H7M XUAN Rx#:[id number] NS Inj 500 ML @ Wide Open IV. 500 / 500 SIG BOLUS ONE Rx#:[id number] Oral 240 / 240 Output: Urine 775 / 775 Other: # Voids 1 Date of Last Bowel Movement 01/03/18 # Bowel Movements 0 Weight On Admission 68.8 kg - Constitutional no acute distress - Routine HEENT Exam Head: Present: normocephalic, atraumatic Eye: Present: normal accommodation ENT: Present: mucous membranes moist - Routine Neck Exam Present: supple - Routine Respiratory Exam Present: CTA bilaterally - Routine Cardiovascular Exam Present: RRR - Routine Abdominal Exam Present: soft - Routine Skin Exam Present: intact - Routine Neurological Exam Present: alert, oriented X3 Results 01/04/18 05:17 01/04/18 05:17 Cardiac Enzymes 01/03/18 01/03/18 01/03/18 Range/Units 11:17 14:00 18:11 AST (15-37) U/L Troponin I 0.06 H 0.08 H 0.10 H (0.02-0.05) ng/mL 01/03/18 01/04/18 Range/Units 21:11 05:17 AST 17 (15-37) U/L Troponin I 0.11 H (0.02-0.05) ng/mL Coagulation 01/03/18 01/03/18 01/04/18 Range/Units 11:17 23:22 05:17 PT 10.6 10.9 10.7 (9.8-11.6) sec APTT 34.4 H 35.4 H 67.6 H D (24.3-30.1) sec Lipids 01/04/18 Range/Units 05:17 Triglycerides 77 (42-150) mg/dL Cholesterol 117 L (120-200) mg/dL HDL Cholesterol 40.9 (40.0-60.0) mg/dL Cholesterol/HDL Ratio 2.86 Ratio CBC 08/07/18 08/08/18 Range/Units 11:17 05:17 WBC 6.1 6.2 (4.0-11.0) th/mm3 RBC 4.62 4.68 (4.50-5.90) mil/mm3 Hgb 14.7 14.7 (13.0-17.0) gm/dL Hct 42.9 43.7 (39.0-51.0) % Plt Count 232 212 (150-450) th/mm3 Neut # (Auto) 4.6 4.6 (1.8-7.7) th/mm3 Lymph # (Auto) 0.9 L 0.7 L (1.0-4.8) th/mm3 Bibb # (Auto) 0.4 0.6 (0.0-0.9) th/mm3 Eos # (Auto) 0.2 0.3 (0.0-0.4) th/mm3 Baso # (Auto) 0.0 0.0 (0.0-0.2) th/mm3 Comprehensive Metabolic Panel 01/03/18 01/04/18 Range/Units 11:17 05:17 Sodium 142 144 (136-145) meq/L Potassium 4.3 4.1 (3.5-5.1) meq/L Chloride 108 H 111 H (98-107) meq/L Carbon Dioxide 28.2 26.1 (21.0-32.0) meq/L BUN 16 14 (7-18) mg/dL Creatinine 1.11 0.90 (0.60-1.30) mg/dL Calcium 8.4 L 7.8 L (8.5-10.1) mg/dL AST 17 (15-37) U/L ALT 21 (12-78) U/L Alkaline Phosphatase 54 (45-117) U/L Total Protein 6.1 L (6.4-8.2) g/dL Albumin 3.4 (3.4-5.0) g/dL Intake and Output 01/03/18 01/04/18 01/04/18 22:59 06:59 14:59 Intake Total 1240 / 1240 Output Total 775 / 775 Balance -775 / -775 1240 / 1240 Intake: IV 1000 / 1000 NS Inj 1,000 ML @ 90 mls/hr IV. 1000 / 1000 CONT .Q11H7M [facility] Rx#:[id number] Oral 240 / 240 Output: Urine 775 / 775 Other: # Voids 1 Date of Last Bowel Movement 01/03/18 01/03/18 # Bowel Movements 0 Weight 68.8 kg 69 kg Weight On Admission 68.8 kg Assessment and Plan - Plan ASHD Chest pain, elevated troponin HTN Hyperlipidemia -Patient currently on nitro and heparin drip. Continues to have chest discomfort at rest. History of CABG x [address] Bates in 1996. On ASA, BB, and russell inhibitor. Will plan to proceed with heart catheterization. Risk of , bleeding, stroke, heart attack, infection, etc. reviewed with patient and . Patient understands risks and wishes to proceed. -BP is controlled -Continues on statin The patient was seen and evaluated by Dr. Henry who completed face to face encounter and physical exam and participated in care, management, and decision making. Code Status: Full Discussed Condition With: Nurse and <Dave Henry - Last Filed: 01/04/18 15:23> History of Present Illness Primary Care Provider: Bean Orosco MD [facility] - Medical History Medical History: Medical History (Last Updated 01/04/18 @ 11:01 by Samantha Mandeep) Basal cell carcinoma (BCC) HBP (high blood pressure) High cholesterol Hx of cardiac disorder Hx of thyroid disease Squamous cell carcinoma - Surgical History Surgical History: Surgical History (Last Reviewed 01/03/18 @ 15:32 by Elyse Mckeon RN) H/O cervical spine surgery Hx of heart artery stent - Family History Family History: Family History (Last Updated 01/03/18 @ 13:53 by Vivi Claudio MD, R1) Father Lung cancer Sister Pancreatic cancer Medications and Allergies Active Medications: Active Medications Acetaminophen (Tylenol) 650 mg PO Q4H PRN PRN Reason: Temp > 100.4 Al Hydroxide/Mg Hydroxide (Milk Of Magnesia Liq) 30 ml PO Q12H PRN PRN Reason: Mild Constipation Aspirin (Aspirin) 325 mg PO DAILY [facility] Last Admin: 01/04/18 08:55 Dose: 325 mg Bisacodyl (Dulcolax Supp) 10 mg RECTAL DAILY PRN PRN Reason: SEVERE CONSITIPATION Sodium Chloride (Ns Inj) 1,000 mls @ 90 mls/hr IV.CONT .Q11H7M [facility] Last Admin: 01/04/18 02:45 Dose: 90 mls/hr Nitroglycerin/Dextrose (Nitroglycerin Drip Premix) 50 mg in 250 mls @ 1.5 mls/ hr IV.CONT TITRATE PRN; Protocol PRN Reason: See Protocol Heparin Sodium/Dextrose (Heparin/D5w 25,000 U/250 Ml) 25,000 unit in 250 mls @ 8 mls/hr IV.CONT TITRATE PRN; Protocol PRN Reason: Per Protocol Lactulose (Lactulose Liq) 30 ml PO DAILY PRN PRN Reason: SEVERE CONSITIPATION Levothyroxine Sodium (Synthroid) 50 mcg PO DAILY@0600 [facility] Last Admin: 01/04/18 06:34 Dose: 50 mcg Metoprolol Tartrate (Lopressor) 25 mg PO BID [facility] Last Admin: 01/04/18 08:55 Dose: 25 mg Ondansetron HCl (Zofran Inj) 4 mg IV.PUSH Q6H PRN PRN Reason: NAUSEA OR VOMITING Ramipril (Altace) 10 mg PO DAILY [facility] Last Admin: 01/04/18 10:32 Dose: 10 mg Sennosides (Senokot) 17.2 mg PO Q12H PRN PRN Reason: Moderate Constipation Sodium Chloride (Ns Flush) 2 ml IV.FLUSH UNSCH PRN PRN Reason: FLUSH AFTER USING IV ACCESS Last Admin: 01/03/18 11:21 Dose: 2 ml Sodium Chloride (Ns Inj) 2 ml IV.FLUSH BID [facility] Sodium Chloride (Ns Inj) 2 ml IV.FLUSH UNSCH PRN PRN Reason: FLUSH AFTER USING IV ACCESS Temazepam (Restoril) 15 mg PO HS PRN PRN Reason: INSOMNIA Exam Vital signs: Vital Signs 01/03/18 16:00 01/03/18 18:44 01/03/18 20:00 Temperature 97.9 F 97.5 F L 97.3 F L Pulse Rate 69 66 64 Respiratory Rate 20 20 20 Blood Pressure 159/87 H 141/79 H 152/84 H Pulse Oximetry 96 96 98 01/03/18 23:30 01/04/18 00:00 01/04/18 00:19 Temperature 97.6 F 97.6 F Pulse Rate 77 74 74 Respiratory Rate 18 22 Blood Pressure 134/66 168/86 H Pulse Oximetry 98 98 08/08/18 01:00 01/04/18 02:00 01/04/18 03:00 Temperature 97.7 F Pulse Rate 68 58 L 57 L Respiratory Rate 22 Blood Pressure 110/61 Pulse Oximetry 98 01/04/18 04:00 01/04/18 05:00 01/04/18 09:53 Temperature Pulse Rate 58 L 62 Respiratory Rate Blood Pressure Pulse Oximetry 96 Intake & Output 01/03/18 01/04/18 01/04/18 18:59 06:59 18:59 Intake Total 500 / 500 1240 / 1240 750 / 750 Output Total 775 / 775 Balance -275 / -275 1240 / 1240 750 / 750 Weight 68.8 kg 69 kg Intake: IV 500 / 500 1000 / 1000 NS Inj 1,000 ML @ 90 mls/hr IV. 1000 / 1000 CONT .Q11H7M XUAN Rx#:[id number] NS Inj 500 ML @ Wide Open IV. 500 / 500 SIG BOLUS ONE Rx#:[id number] Oral 240 / 240 Anesthesia Amount 750 / 750 Output: Urine 775 / 775 Other: # Voids 1 Date of Last Bowel Movement 01/03/18 # Bowel Movements 0 Weight On Admission 68.8 kg Results 01/04/18 05:17 01/04/18 05:17 Cardiac Enzymes 01/03/18 01/03/18 01/04/18 Range/Units 18:11 21:11 05:17 AST 17 (15-37) U/L Troponin I 0.10 H 0.11 H (0.02-0.05) ng/mL Coagulation 01/03/18 01/04/18 Range/Units 23:22 05:17 PT 10.9 10.7 (9.8-11.6) sec APTT 35.4 H 67.6 H D (24.3-30.1) sec Lipids 01/04/18 Range/Units 05:17 Triglycerides 77 (42-150) mg/dL Cholesterol 117 L (120-200) mg/dL HDL Cholesterol 40.9 (40.0-60.0) mg/dL Cholesterol/HDL Ratio 2.86 Ratio CBC 01/04/18 Range/Units 05:17 WBC 6.2 (4.0-11.0) th/mm3 RBC 4.68 (4.50-5.90) mil/mm3 Hgb 14.7 (13.0-17.0) gm/dL Hct 43.7 (39.0-51.0) % Plt Count 212 (150-450) th/mm3 Neut # (Auto) 4.6 (1.8-7.7) th/mm3 Lymph # (Auto) 0.7 L (1.0-4.8) th/mm3 Bibb # (Auto) 0.6 (0.0-0.9) th/mm3 Eos # (Auto) 0.3 (0.0-0.4) th/mm3 Baso # (Auto) 0.0 (0.0-0.2) th/mm3 Comprehensive Metabolic Panel 01/04/18 Range/Units 05:17 Sodium 144 (136-145) meq/L Potassium 4.1 (3.5-5.1) meq/L Chloride 111 H (98-107) meq/L Carbon Dioxide 26.1 (21.0-32.0) meq/L BUN 14 (7-18) mg/dL Creatinine 0.90 (0.60-1.30) mg/dL Calcium 7.8 L (8.5-10.1) mg/dL AST 17 (15-37) U/L ALT 21 (12-78) U/L Alkaline Phosphatase 54 (45-117) U/L Total Protein 6.1 L (6.4-8.2) g/dL Albumin 3.4 (3.4-5.0) g/dL Intake and Output 01/04/18 01/04/18 01/04/18 06:59 14:59 22:59 Intake Total 1240 / 1240 750 / 750 Balance 1240 / 1240 750 / 750 Intake: IV 1000 / 1000 NS Inj 1,000 ML @ 90 mls/hr IV. 1000 / 1000 CONT .Q11H7M [facility] Rx#:[id number] Oral 240 / 240 Anesthesia Amount 750 / 750 Other: # Voids 1 Date of Last Bowel Movement 01/03/18 Weight 69 kg Assessment and Plan - Plan The exam, history, and the medical decision-making described in the above note were completed with the assistance of the mid-level provider. I reviewed and agree with the findings presented. I attest that I had a [id number] encounter with the patient on the same day, and personally performed and documented my assessment and findings in the medical record. Risks of cath stent foreseen and unforeseen complications reviewed in detail.
[2018-01-04] MEDS ORDERED: fentaNYL Citrate Inj 100 MCG/2 ML Ampul ONE (12:22)
[2018-01-04] MEDS ORDERED: Heparin/NS PF Inj 1,000 ML ONE (12:24)
[2018-01-04] MEDS ORDERED: fentaNYL Citrate Inj 100 MCG/2 ML Ampul IV.PUSH ONE (12:55)
[2018-01-04] MEDS ORDERED: Heparin 10,000 UNITS/10 ML Vial (for IV use) IV.PUSH ONE ×2 (13:30→13:40)
[2018-01-04] MEDS ORDERED: Heparin 10,000 UNITS/10 ML Vial (for IV use) ONE (14:38)
--- NOTE | 2018-01-04 14:38 | CATHPROC ---
[place] HIS Report Study Information Study Number Admission Scheduled Start Study Start [id number] Jan 03 2018 1:34PM 01/04/2018 Jan 04 2018 12:06PM [place] Service Cardiac Catheterization Admit Source Facility Department Emergency department [facility] - Net Programmer Analyst Physician and Clinical Staff Initial MD Henry, Dave Black Top Raker Marco Cross RN Recorder Greg Duarte,RT(R) Scrub Christiana Mendes,RT(R) Procedures Performed Procedure Location (Site) Vessel Name Coronary Angiograms LCA Left Coronary Coronary Angiograms RCA Right Coronary Coronary Angiograms Gft. Stump 1 SVG Graft Coronary Angiograms NEVILLE NEVILLE L Heart Cath Wire insertion Fem Art (right) Femoral Art Equipment Time Iron Handler Description Size Mfg Part Number Used/Scraped [id number] 14:04 [employer] WIRE, ASAmPura PROWATER 180CM 180CM Used *[id number] TRANSDUCER, TRUWAVE [id number] 12:07 OTERO LAWLER * Used W/STOCKCOCK *[id number] ART 3.5 GUIDE CATHETER [id number] 13:32 [employer] FR 6 Used RUNWAY *[id number] 13:45 [employer] WIRE, CHOICE PT 182CM 182CM Used *[id number] INTRODUCER SET, 12:07 [employer] FR 5 [id number] *[id number] Used MICROPUNCTURE STIFF [phone] *[id number] 538-460 *[id number] 538-420 *[id number] 538-442 *[id number] 14:22 DAIG/[facility] [employer] ANGIOSEAL, FR6 VIP FR 6 Used *[id number] 12:07 Anywhere to Go BLANKET,WARM AIR CCL * Used *[id number] 12:07 Anywhere [employer] PACK, CCL CUSTOM * Used *[id number] 12:07 Riskified PACER PEN, SKIN DUAL W/ RULER * Used *[id number] 13:31 link bird SHEATH, FR6.5 PRELUDE 11CM FR 6.5 038ACT Used *[id number] 12:07 link bird WIRE, 3MMJ .035 180CM 180CM Used *[id number] PROBE COVER, STERILE [id number] 12:07 TagSeats * Used ULTRASOUND W/ GEL *[id number] 12:07 [facility] MANIFOLD, 4 PORT * Used *[id number] 12:07 [employer]COMED OMNIPAQUE, 350 MG, 150ML 150ML [id number] Used 13:45 [employer]ED OMNIPAQUE, 350 MG, 150ML 150ML [id number] Used [id number] 12:07 [employer] SHEATH, FR4 TERUMO (10CM) FR 4 Used *[id number] WIRE, RUNTHROUGH NS FLOPPY 25-1013 13:33 TERUMO MEDICAL 300CM Used .014 300CM *[id number] History: Current Medications Medication Dosage/Unit Route Frequency Last Date/Time Taken ASA CRESTOR Synthroid History: Allergies Allergy Reaction No Known Allergies History: Risk Factors Family History of Hypertension Dyslipidemia Previous DE Previous Heart Failure Premature CAD Yes Yes No Yes No Prior Valve Prior PCI Prior CABG Prior CABGDate Surgery No No Yes 12/28/1997 Cerebrovascular Peripheral Artery Chronic Lung On Dialysis Diabetes Disease Disease Disease No No No No No History: Symptoms/Diagnosis Selection Items Chest pain History: CV Disease Selection Items Known CAD DE History: Stress Tests Stress or Imaging Studies Performed No History: Other Disease Selection Items CAD HTN History: Other Current Smoker Method Quit Packs a Day Years Used Pack Years No Cigarettes 50 Years Ago 1 10 10 Labs Hgb (g/dl) Hct (%) RBC (MIL/MM3) WBC (l/cumm) Platelets (thousands) 11.60-17.00 35.00-51.00 4.00-5.90 4.00-11.00 150.00-450.00 14.7 43.7 4.6 6.2 212 Glucose (mg/dl) BUN (mg/dl) Creatinine (mg/dl) BUN:Creatinine (1:x) 74.00-106.00 7.00-18.00 0.50-1.30 10.00-20.00 93 14 0.9 15.6 Na (meq/l) K (meq/l) Cl (meq/l) 136.00-145.00 3.50-5.10 98.00-107.00 144 4.1 108 INR (PTT:PT) 0.90-1.10 1.1 Troponin I (ng/ml) CPK-MB (ng/ML) 0.02-0.05 0.50-3.60 0.1 Not Drawn Medication Medication Total Dose (Bolus/Oral) Medication Total Dosage/Unit 1% XYLOCAINE 20 mL FENTANYL 50 mcg HEPARIN 6000 units NTG (IC) 100 mcg VERSED 2 mg Medications (Bolus/Oral) Medication Time Given Dosage/Unit Administered By Reason 1% XYLOCAINE 01/04/2018 12:57:52 PM 20 mL ChongrMonicaun 20 mL 1% XYLOCAINE given in lab by Dave Henry in Right Groin via Subcutaneous. VERSED 01/04/2018 12:57:59 PM 1 mg Marco Cross 1 mg VERSED given in lab by Marco Cross RN in Right Antecubital via Peripheral IV. FENTANYL 01/04/2018 12:58:00 PM 50 mcg Marco Cross 50 mcg FENTANYL given in lab by Marco Cross RN in Right Antecubital via Peripheral IV. VERSED 01/04/2018 1:19:00 PM 1 mg Marco Cross 1 mg VERSED given in lab by Marco Cross RN in Right Antecubital via Peripheral IV. HEPARIN 01/04/2018 1:29:21 PM 5000 units Marco Cross 5000 units HEPARIN given in lab by Marco Cross RN in Right Antecubital via Peripheral IV. HEPARIN 01/04/2018 1:41:16 PM 1000 units Marco Cross 1000 units HEPARIN given in lab by Marco Cross RN in Right Antecubital via Peripheral IV. NTG (IC) 01/04/2018 1:51:47 PM 100 mcg Christiana Mendes 100 mcg NTG (IC) given in lab by Christiana Mendes, RT(R) via Intra-coronary. Medication (Drip) Medication Time Given Dosage/Unit Concentration/Unit Diluent (ml) Solutio n IV Solutions 01/04/2018 12:15:18 PM 0 mL (IV) 1000 NaCl .9 Patient arrived on IV Solutions in Right Antecubital via Peripheral IV. Pump/Drip Flow = 20 ml/hr usi ng NaCl .9. NITROGLYCERIN DRIP 01/04/2018 12:45:00 PM 5 mcg/min 50 mg 250 D5W Patient arrived on 5 mcg/min NITROGLYCERIN DRIP in Right Antecubital via Peripheral IV. Pump/Drip Jarad w = 1.5 ml/hr using D5W with a concentration of 50 mg in 250 ml. NITROGLYCERN DRIP 01/04/2018 1:01:31 PM 0 units/hr 0 STOPPED Patient arrived on 0 units/hr NITROGLYCERN DRIP STOPPED given by Marco Cross RN. Pump/Drip Flow = 0 ml/hr using [Solution Name]. Initial Case Assessment Cardiovascular HR Rhythm NIBP Chest Pain 64 Sinus 146/68 0 Edema Present Skin color Skin None Normal Warm Dry Circulatory - Right Pulses Dorsalis Pedis Femoral 1 2 Scale (0,1,2,3,4,d) Circulatory - Left Pulses Dorsalis Pedis Femoral 1 2 Scale (0,1,2,3,4,d) Neurological State Oriented to time-place- Alert Moves all extremities person Respiration - General Respiration Rate SpO2 (%) O2 (lpm) (B/min) 10 97 0 Final Case Assessment Cardiovascular HR Rhythm NIBP Chest Pain 73 Sinus 142/78 0 Edema Present Skin color Skin None Normal Warm Dry Circulatory - Right Pulses Dorsalis Pedis Femoral 1 2 Scale (0,1,2,3,4,d) Circulatory - Left Pulses Dorsalis Pedis Femoral 1 2 Scale (0,1,2,3,4,d) Neurological State Oriented to time-place- Alert Moves all extremities person Respiration - General Respiration Rate SpO2 (%) O2 (lpm) (B/min) 14 98 2 Chronological Log Time Study Chronological Log 12:15:04 Patient arrived via Bed. 12:15:05 Patient Name, D.O.B, / Armband Verified By R.N. 12:15:06 Consent signed by the physician and the patient and verified by the Net Programmer Analyst staff. 12:15:06 Pre-op and post- op instructions given; patient acknowledges understanding of instructions. 12:15:07 Verbal Stimulation=2 Physical Stimulation=2 Airway=2 Respiration=2 TOTAL=8. (0=absent, 1=li mited, 2=present) 12:15:08 Presedation assessment performed by Net Programmer Analyst RN. 12:15:11 Patient has been NPO for More than 6Hrs. 12:15:12 Skin Breakdown- none per patient. 12:15:13 Patient Warmer Placed on the Table. 12:15:16 Ankur Prominences Protected 12:15:18 A # 20 IV was noted in the Antecubital (right). Grade = 0 12:15:18 Patient arrived on IV Solutions in Right Antecubital via Peripheral IV. Pump/Drip Flow = 20 ml/hr using NaCl .9. 12:15:19 History and physical on the chart or being dictated. Vitals capture started with the following parameters, Patient=Adult, Interval=5 min, Initial Pr ritbwz=172 mmHg, 12:22:10 Deflation Rate=5 mmHg, Cuff placed on Left Arm 12:23:14 A # 20 IV was noted in the Forearm (left). Grade = 0 12:23:26 HR=63 bpm, KVBI=429/68 mmhg, SpO2=98.0 %, Pain=0, Clau=10, Rosales=2 Assessment: Initial Case, HR=64 BPM, Rhythm=Sinus, HUJS=647/68 mmhg, Chest Pain=0, Edema=None, Color=Normal, Skin = Warm, Dry Right Pulses: Corky Ped=1, Femoral=2 12:26:50 Left Pulses: Corky Ped=1, Femoral=2 Neurological: State=Alert, Ox3, RAMACHANDRAN Respiration: Resp=10 B/min, SpO2=97 %, O2=0 lpm 12:27:54 HR=62 bpm, LUDF=039/70 mmhg, SpO2=97.0 %, Pain=0, Clau=10, Rosales=2 12:30:37 Bilateral groins prepped with 2% chlorhexidine, and draped after a 3 minute waiting time. 12:33:34 HR=67 bpm, NMBQ=782/75 mmhg, SpO2=98.0 %, Pain=0, Clau=10, Rosales=2 12:35:09 MD paged 12:37:06 Pressure channel 1 zeroed. 12:37:56 HR=65 bpm, GXJP=357/71 mmhg, SpO2=96.0 %, Pain=0, Clau=10, Rosales=2 12:39:53 Reference ECG taken 12:42:53 HR=64 bpm, BJKI=526/70 mmhg, SpO2=94.0 %, Pain=0, Clau=10, Rosales=2 Patient arrived on 5 mcg/min NITROGLYCERIN DRIP in Right Antecubital via Peripheral IV. Pump/Dr ip Flow = 1.5 ml/hr 12:45:00 using D5W with a concentration of 50 mg in 250 ml. 12:47:50 HR=60 bpm, ZRIU=435/69 mmhg, SpO2=95.0 %, Pain=0, Clau=10, Rosales=2 12:49:48 MD arrived. 12:52:52 HR=62 bpm, ITAK=829/69 mmhg, SpO2=98.0 %, Pain=0, Clau=10, Rosales=2 Time Out. Correct patient, correct procedure, correct physician, labs, allergies, and equipment verified with label paster 12:55:22 team present. Fire risk assesment completed (see hard stop sheet for coding). Time Out Conc urred by MD and individual staff in procedure. 12:57:51 Case Start 12:57:52 20 mL 1% XYLOCAINE given in lab by Dave Henry in Right Groin via Subcutaneous. 12:57:55 HR=57 bpm, IZID=357/55 mmhg, SpO2=94.0 %, Pain=0, Clau=10, Rosales=2 12:57:59 1 mg VERSED given in lab by Marco Cross RN in Right Antecubital via Peripheral IV. 12:58:00 50 mcg FENTANYL given in lab by Marco Cross RN in Right Antecubital via Peripheral IV. 13:00:30 Access site was Right Femoral Artery. 13:00:39 A SHEATH, FR4 TERUMO (10CM) FR 4 was advanced into the Fem Art (right) using the Percutaneo us technique. Patient arrived on 0 units/hr NITROGLYCERN DRIP STOPPED given by Marco Cross, RN. Pump/Drip F low = 0 ml/hr 13:01:31 using [Solution Name]. A JL 4.0 INFINITI CATHETER FR 4 was advanced over a wire. OMNIPAQUE, 350 MG, 150ML 150ML was us ed for 13:01:46 injections. 13:02:50 HR=64 bpm, TWOV=411/61 mmhg, SpO2=90.0 %, Pain=0, Clau=10, Rosales=2 Recorded Pressure: Ao, HR=61, Condition=Condition 1 13:04:49 (Aorta) Ao 100/50/71 13:05:27 The LCA was injected and visualized at various angles. OMNIPAQUE, 350 MG, 150ML 150ML used . 13:06:59 Catheter was removed A 3DRC INFINITI CATHETER FR 4 was advanced over a wire. OMNIPAQUE, 350 MG, 150ML 150ML was used for 13:07:43 injections. 13:07:53 HR=63 bpm, DDIY=645/59 mmhg, SpO2=90.0 %, Pain=0, Clau=10, Rosales=2 13:10:09 The RCA was injected and visualized at various angles. OMNIPAQUE, 350 MG, 150ML 150ML used . 13:12:52 HR=70 bpm, PYFX=741/66 mmhg, SpO2=92.0 %, Pain=0, Clau=10, Rosales=2 13:13:54 Catheter was removed A MPA-2 INFINITI CATHETER FR 4 was advanced over a wire. OMNIPAQUE, 350 MG, 150ML 150ML was use d for 13:14:13 injections. 13:16:49 The Gft. Stump 1 was injected and visualized at various angles. OMNIPAQUE, 350 MG, 150ML 15 0ML used. 13:17:44 Catheter was removed 13:17:55 HR=66 bpm, KCEF=205/59 mmhg, SpO2=92.0 %, Pain=0, Clau=10, Rosales=2 13:17:56 A IM INFINITI CATHETER FR 4 was advanced over a wire. OMNIPAQUE, 350 MG, 150ML 150ML was us ed for injections. 13:19:00 1 mg VERSED given in lab by Marco Cross RN in Right Antecubital via Peripheral IV. 13:20:37 The NEVILLE was injected and visualized at various angles. OMNIPAQUE, 350 MG, 150ML 150ML used . 13:21:34 Catheter was removed 13:22:54 HR=67 bpm, NEKK=159/57 mmhg, SpO2=90.0 %, Pain=0, Clau=10, Rosales=2 13:24:42 A SHEATH, FR6.5 PRELUDE 11CM FR 6.5 was advanced into the Fem Art (right) using the Percuta neous technique. 13:25:02 Activated Clotting Time Drawn 13:27:11 ACT (Normal Range 90-180) = 94 13:27:51 HR=68 bpm, OJPZ=065/65 mmhg, SpO2=93.0 %, Pain=0, Clau=10, Rosales=2 13:29:21 5000 units HEPARIN given in lab by Marco Cross RN in Right Antecubital via Peripheral IV . A ART 3.5 GUIDE CATHETER RUNWAY FR 6 was advanced over a wire. OMNIPAQUE, 350 MG, 150ML 150ML w as used 13:31:40 for injections. 13:32:56 HR=65 bpm, LKWT=978/56 mmhg, SpO2=94.0 %, Pain=0, Clau=10, Rosales=2 13:35:48 Activated Clotting Time Drawn 13:37:53 HR=69 bpm, KEBR=606/62 mmhg, SpO2=93.0 %, Pain=0, Clau=8, Rosales=2 13:38:57 A WIRE, RUNTHROUGH NS FLOPPY .014 300CM 300CM was inserted via Fem Art (right). 13:39:41 Wire removed for reshaping 13:40:19 A WIRE, RUNTHROUGH NS FLOPPY .014 300CM 300CM was inserted via Fem Art (right). 13:41:09 ACT (Normal Range 90-180) = 220 13:41:16 1000 units HEPARIN given in lab by Marco Cross RN in Right Antecubital via Peripheral IV . 13:42:58 HR=67 bpm, ZTZA=849/66 mmhg, SpO2=93.0 %, Pain=0, Clau=10, Rosales=2 13:44:41 Wire removed 13:47:55 HR=64 bpm, IJRH=853/67 mmhg, SpO2=93.0 %, Pain=0, Clau=10, Rosales=2 13:50:49 A WIRE, CHOICE PT 182CM 182CM was inserted via Fem Art (right). 13:51:47 100 mcg NTG (IC) given in lab by Christiana Mendes RT(R) via Intra-coronary. 13:52:58 HR=73 bpm, FMQH=702/74 mmhg, SpO2=95.0 %, Pain=0, Clau=10, Rosales=2 13:54:00 Wire removed 13:54:22 A WIRE, CHOICE PT 182CM 182CM was inserted via Fem Art (right). 13:55:37 Wire removed 13:57:58 A WIRE, CHOICE PT 182CM 182CM was inserted via Fem Art (right). 13:58:01 HR=69 bpm, KELP=642/68 mmhg, SpO2=94.0 %, Pain=0, Clau=10, Rosales=2 14:02:43 Wire removed 14:03:03 HR=74 bpm, KXJC=417/72 mmhg, SpO2=95.0 %, Pain=0, Clau=10, Rosales=2 14:03:07 The RCA was injected and visualized at various angles. OMNIPAQUE, 350 MG, 150ML 150ML used . 14:03:51 A WIRE, ASAHI PROWATER 180CM 180CM was inserted via Fem Art (right). 14:07:37 Wire removed 14:08:04 HR=68 bpm, NOMR=337/69 mmhg, SpO2=95.0 %, Pain=0, Clau=10, Rosales=2 14:12:09 A WIRE, ASAHI PROWATER 180CM 180CM was inserted via Fem Art (right). 14:13:05 HR=67 bpm, UPLQ=095/72 mmhg, SpO2=95.0 %, Pain=0, Clau=10, Rosales=2 14:17:08 Wire removed 14:17:19 Catheter was removed 14:17:36 Activated Clotting Time Drawn 14:18:04 HR=76 bpm, ZLCS=946/78 mmhg, SpO2=97.0 %, Pain=0, Clau=10, Rosales=2 14:18:12 An injection in the Fem Art (right) was made through the SHEATH, FR6.5 PRELUDE 11CM FR 6.5 . 14:21:26 ANGIOSEAL, FR6 VIP FR 6 placement in the Fem Art (right) 14:21:43 Case End (Physician broke scrub) 14:21:46 No case complications noted. 14:21:47 Cine recording checked. 14:21:56 A Left Heart Cath was performed. Assessment: Final Case, HR=73 BPM, Rhythm=Sinus, YQBQ=589/78 mmhg, Chest Pain=0, Edema=None, Color=Normal, Skin = Warm, Dry Right Pulses: Corky Ped=1, Femoral=2 14:21:59 Left Pulses: Corky Ped=1, Femoral=2 Neurological: State=Alert, Ox3, RAMACHANDRAN Respiration: Resp=14 B/min, SpO2=98 %, O2=2 lpm 14:23:46 HR=74 bpm, GYUI=940/89 mmhg, SpO2=98.0 %, Pain=0, Clau=10, Rosales=2 14:24:31 Bedside Report will be given. 14:28:06 RGZQ=474/81 mmhg, SpO2=98.0 %, Pain=0, Clau=10, Rosales=2 14:30:15 Vitals capture stopped. 14:32:40 Patient moved to stretcher End Study - Contrast Media Used In Study Contrast Total Opened (mL) Total Used (mL) Total Wasted (mL) Omnipaque 300 160 140 End Study - Maximum Contrast Load Max Contrast Load (mL) 383.3 End Study - Radiation Exposure Fluoro Time (minutes) 33.7 End Study - Patient Disposition Complications Transferred To Interventional Outcome No Telemetry Bed unsuccessful
--- NOTE | 2018-01-04 15:02 | MA ---
cc: Dave Henry MD, Lee DATE: 01/04/2018 PROCEDURE PERFORMED: 1. Sedation. 2. Bilateral coronaries. 3. Internal mammary graft. 4. Saphenous vein graft stumps. 5. Upgrade to a 6-Bolivian sheath. Attempt at wiring high-grade multiple lesions in the right coronary unsuccessful. PROCEDURAL STATEMENT: The patient was draped and prepped in the usual manner. Right femoral artery was entered using micropuncture technique with a 4-Bolivian sheath. Left and right coronary catheters were used to intubate the left and right coronaries. LV gram was not done in the interest of dye sparing. Saphenous vein graft stumps were entered using a multipurpose catheter and the internal mammary artery with the IM catheter. Multiple angiographic views were carried out. It was decided to attempt angioplasty of the right coronary, despite it being tortuous with multiple, greater than 10 lesions in it, since the left system was stable and multiple wires including a Whisper wire, Hi-Torque floppy Runthrough Prowater were tried, but would not cross the multiple lesions, it was decided that the patient may benefit from Rotablator. We will therefore stop at this point and can consider Rotablator therapy. FINDINGS: HEMODYNAMICS: Aortic pressure is 100/52 with mean of 71. CORONARY ARTERIES: The left main was large and free of significant disease. The left anterior descending artery was a large artery, had evidence of an internal mammary graft to the LAD with competitive flow. The circumflex artery was a large artery with a large first obtuse marginal branch. It also had excellent flow to this vessel. There is evidence of a previously placed stent in the circumflex, which was widely patent. The LAD was a large vessel with a large septal greensman, a large first diagonal branch, it was attached to the left internal mammary with evidence of competitive flow. There was a high-grade lesion just before its insertion of about 75%. There was evidence of 2 saphenous vein graft stubs which were totally occluded. Saphenous vein graft to diagonal and a saphenous vein graft to the right. The right coronary artery was severely diseased throughout its length with evidence of calcification. 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 Following this, there was a high-grade 90% stenosis. There were several other 75% stenosis throughout the right coronary. Saphenous vein graft to the diagonal branch was totally occluded at its stubs. Saphenous vein graft to the right coronary was occluded at its stub. Left internal mammary artery showed excellent graft to the LAD with some mild diffuse disease distal to its insertion site. There was evidence of mild retrograde flow noted as well. CONCLUSION: Patent left system including the left internal mammary to the LAD, occluded vein graft to the diagonal branch, occluded vein graft to the distal right. Severe disease of the right coronary, which could be the patient's ACS causing lesion. We will therefore consider referral for Rotablator of the multiple lesions to the right. MD JESSICA Alexander/ZORAN , 02:35 PM , 02:46 PM
[2018-01-04 16:52] LABS: Hemoglobin A1c 5.6 % (4.3-6.0)
[2018-01-04 19:58] VITALS: O2SAT 98
[2018-01-04] MEDS ORDERED: Enoxaparin Inj 40 MG/0.4 ML Syringe SQ ONE (20:00)
--- NOTE | 2018-01-04 22:26 | ECG ---
Date Performed: 01/03/2018 Time Performed: 21:24:44 PTAGE: 77 years EKG: Sinus rhythm WITH FIRST DEGREE AV BLOCK LEFT BUNDLE BRANCH BLOCK ABNORMAL ECG PREVIOUS TRACING : 01/03/2018 18.10 Since the previous tracing, no significant change noted DOCTOR: Savage Weldon Interpretating Date/Time 01/04/2018 22:24:53
--- NOTE | 2018-01-04 22:32 | ECG ---
Date Performed: 01/03/2018 Time Performed: 18:10:46 PTAGE: 77 years EKG: Sinus rhythm with borderline 1st degree A-V block Lead(s) unsuitable for analysis: V6 Left bundle branch block Lo w QRS voltages in limb leads Abnormal ECG NO PREVIOUS TRACING DOCTOR: Savage Weldon Interpretating Date/Time 01/04/2018 22:29:00
--- NOTE | 2018-01-04 22:40 | ECG ---
Date Performed: 01/03/2018 Time Performed: 14:05:00 PTAGE: 77 years EKG: Sinus rhythm WITH FIRST DEGREE AV BLOCK LEFT BUNDLE BRANCH BLOCK ABNORMAL ECG INTERPRETATION BASED ON A DEFAULT A GE OF 42 YEARS PREVIOUS TRACING : 01/03/2018 10.48 Since the previous tracing, no significant change not ed DOCTOR: Savage Weldon Interpretating Date/Time 01/04/2018 22:38:30
--- NOTE | 2018-01-04 22:47 | ECG ---
Date Performed: 01/03/2018 Time Performed: 10:48:16 PTAGE: 77 years EKG: Sinus rhythm WITH FIRST DEGREE AV BLOCK POSSIBLE LEFT ATRIAL ENLARGEMENT INTRAVENTRICULAR CONDUCTION DELAY POSSIB LE ANTERIOR MYOCARDIAL INFARCTION ABNORMAL ECG PREVIOUS TRACING : 11/20/2013 11.43 Since the previous tracing, no significant change noted DOCTOR: Savage Weldon Interpretating Date/Time 01/04/2018 22:45:45
[2018-01-05 00:48] VITALS: BP 104/59; RESP 12; TEMP 98
[2018-01-05] MEDS: Sod Chloride 0.9% Inj 1,000 ML IV.CONT SCH (02:08)
[2018-01-05 02:26] VITALS: PULSE 66
== END 2018-01-05 02:14 | disposition short-term general hospital (02) ==
LOC: NEPE 10:29 → HCPC 10:29 → INTOOBSV 13:34 → NEDA 13:34 → N04 14:56 → HCPC 01-04 00:01
PROVIDERS: ADMIT Family Medicine; ATTEND Family Medicine